=== PATIENT | female | born 1995 | race Caucasian/White ===

== ENCOUNTER 2022-08-17 09:04 | Emergency (ER) | payer BC, SELFPAY ==
--- NOTE | ~2022-08-17 | US_ITS ---
EXAMINATION: US PELVIS COMPLETE US PELVIC OVARIAN DOPPLER US PELVIS AND TRANSVAGINAL CLINICAL INFORMATION: 27-year-old female with history of surgical Ab on day, pain, heavy bleeding. COMPARISON: None TECHNIQUE: Ultrasound of the pelvis is performed using both transabdominal and transvaginal transducers along with Doppler. Transvaginal imaging is performed due to in order to better evaluate the endometrial abnormality. FINDINGS: UTERUS AND CERVIX The anteflexed, anteverted uterus measures 9.8 x 4.5 x 5.8 cm ([id number] x AP x transverse dimension). The myometrial echotexture is normal. No evidence of leiomyoma. The cervix is approximately 3 cm in length. The endometrium is diffusely heterogeneous and thickened, measuring up to 3 cm AP. Color Doppler images show hypervascular appearance of the myometrium; however, there is no focal hypervascularity within the thickened endometrium. Note that retained products of conception within the endometrium often have a hypervascular appearance on color Doppler imaging. ADNEXA: The ovaries have normal size and echotexture. The right ovary is 3.1 x 2.7 x 1.8 cm, volume of 7.7 mL. The left ovary is 2.9 x 2.7 x 2.1 cm, volume of 8.8 mL. The dominant follicle the left ovary is 1.9 cm. No adnexal masses. Color Doppler images with spectral waveforms show presence of normal arterial and venous flow within each ovary. FREE FLUID: No pelvic free fluid. US/US pelvic complete IMPRESSION: The endometrium is diffusely thickened and heterogeneous, measuring up to 3 cm AP. There is absence of increased vascularity within the thickened endometrium, but the absence of color Doppler flow within the thickened endometrium has a low negative predictive value since retained products of conception might occasionally be avascular. The ovaries are normal.
--- NOTE | ~2022-08-17 | US_ITS ---
EXAMINATION: US PELVIS COMPLETE US PELVIC OVARIAN DOPPLER US PELVIS AND TRANSVAGINAL CLINICAL INFORMATION: 27-year-old female with history of surgical Ab on day, pain, heavy bleeding. COMPARISON: None TECHNIQUE: Ultrasound of the pelvis is performed using both transabdominal and transvaginal transducers along with Doppler. Transvaginal imaging is performed due to in order to better evaluate the endometrial abnormality. FINDINGS: UTERUS AND CERVIX The anteflexed, anteverted uterus measures 9.8 x 4.5 x 5.8 cm ([id number] x AP x transverse dimension). The myometrial echotexture is normal. No evidence of leiomyoma. The cervix is approximately 3 cm in length. The endometrium is diffusely heterogeneous and thickened, measuring up to 3 cm AP. Color Doppler images show hypervascular appearance of the myometrium; however, there is no focal hypervascularity within the thickened endometrium. Note that retained products of conception within the endometrium often have a hypervascular appearance on color Doppler imaging. ADNEXA: The ovaries have normal size and echotexture. The right ovary is 3.1 x 2.7 x 1.8 cm, volume of 7.7 mL. The left ovary is 2.9 x 2.7 x 2.1 cm, volume of 8.8 mL. The dominant follicle the left ovary is 1.9 cm. No adnexal masses. Color Doppler images with spectral waveforms show presence of normal arterial and venous flow within each ovary. FREE FLUID: No pelvic free fluid. US/US pelvic and transvaginal IMPRESSION: The endometrium is diffusely thickened and heterogeneous, measuring up to 3 cm AP. There is absence of increased vascularity within the thickened endometrium, but the absence of color Doppler flow within the thickened endometrium has a low negative predictive value since retained products of conception might occasionally be avascular. The ovaries are normal.
--- NOTE | ~2022-08-17 | US_ITS ---
EXAMINATION: US PELVIS COMPLETE US PELVIC OVARIAN DOPPLER US PELVIS AND TRANSVAGINAL CLINICAL INFORMATION: 27-year-old female with history of surgical Ab on day, pain, heavy bleeding. COMPARISON: None TECHNIQUE: Ultrasound of the pelvis is performed using both transabdominal and transvaginal transducers along with Doppler. Transvaginal imaging is performed due to in order to better evaluate the endometrial abnormality. FINDINGS: UTERUS AND CERVIX The anteflexed, anteverted uterus measures 9.8 x 4.5 x 5.8 cm ([id number] x AP x transverse dimension). The myometrial echotexture is normal. No evidence of leiomyoma. The cervix is approximately 3 cm in length. The endometrium is diffusely heterogeneous and thickened, measuring up to 3 cm AP. Color Doppler images show hypervascular appearance of the myometrium; however, there is no focal hypervascularity within the thickened endometrium. Note that retained products of conception within the endometrium often have a hypervascular appearance on color Doppler imaging. ADNEXA: The ovaries have normal size and echotexture. The right ovary is 3.1 x 2.7 x 1.8 cm, volume of 7.7 mL. The left ovary is 2.9 x 2.7 x 2.1 cm, volume of 8.8 mL. The dominant follicle the left ovary is 1.9 cm. No adnexal masses. Color Doppler images with spectral waveforms show presence of normal arterial and venous flow within each ovary. FREE FLUID: No pelvic free fluid. US/US pelvic ovarian doppler IMPRESSION: The endometrium is diffusely thickened and heterogeneous, measuring up to 3 cm AP. There is absence of increased vascularity within the thickened endometrium, but the absence of color Doppler flow within the thickened endometrium has a low negative predictive value since retained products of conception might occasionally be avascular. The ovaries are normal.
[2022-08-17 09:08] VITALS: BP 118/56; PULSE 65; RESP 18; TEMP 36.4; O2SAT 99
[2022-08-17 09:14] VITALS: BP 118/56; PULSE 65; RESP 18; TEMP 36.4; O2SAT 99; BMI 21.1
--- NOTE | 2022-08-17 09:59 | ED.PREGNANCY ---
HPI - General Chief complaint: Abdominal Pain Stated complaint: procedure 4 days ago Experiencing pain Time Seen by Provider: 08/17/22 09:11 Source: patient Mode of arrival: ambulatory Limitations: no limitations History of Present Illness HPI Narrative: 27yoF who is s/p vacuum aspiration/surgical on 08/13/2022 [facility] is presenting to the ER with complaints of worsening vaginal bleeding and suprapubic abdominal pain 2 days after the procedure was performed. She reports that she called the on-call nurse and the nurse explained to her that she should continue taking Motrin and doing abdominal exercises which patient has tried and no symptomatic relief. She reports that she is passing clots although no tissue that she is aware of. She reports that was her 1st she ever had. She reports she is using a pad although she is not soaking a pad and she is just changing the pad any time she sees blood or clots. She reports intermittent episodes of diarrhea. She denies any dizziness, headaches, neck pain/stiffness, trouble swallowing or breathing, chest pain or shortness of breath, dyspnea on exertion, orthopnea, palpitations, paresthesias, nausea/vomiting, back pain, dysuria, hematuria, abnormal vaginal discharge, thoughts of STDs, constipation, rashes, recent travel or sick contacts, lower extremity or calf tenderness or any other symptoms complaints or concerns at this time. MD Complaint: abdominal pain and vaginal bleeding Onset (ago): day(s) (3) Pain Consistency: constant Location: pelvis Severity: mild Quality: Cramping and Aching Relieving factors: none Exacerbating factors: none Associated symptoms: vaginal bleeding and abdominal pain Vaginal discharge: none Vaginal bleeding: heavy and clots Patient : No Related Data : 1 Para: 0 Total number of abortions (spontaneous and elective): 1 Previous Rx's Medication Instructions Recorded acetaminophen 500 mg tablet 1,000 mg PO QID PRN fever or pain 08/17/22 (Tylenol Extra Strength) #14 tabs misoprostol 200 mcg tablet 800 mcg vaginal ONCE #4 tabs 08/17/22 Allergies Allergy/AdvReac Type Severity Reaction Status Date / Time azithromycin Allergy Rash Verified 08/17/22 09:17 Review of Systems Review of Systems: Constitutional : No Fever, No Chills ENT/Mouth : No sore throat, No Rhinorrhea Eyes: No Eye Pain, No Redness Cardiovascular : No Chest Pain, No SOB Respiratory : No Cough, No Sputum, No Wheezing Gastrointestinal : No Nausea, No Vomiting, + Diarrhea, + abdominal pain, Genitourinary : + irregular bleeding, No Dysuria, No Urinary Frequency, No pelvic pain Musculoskeletal : No Myalgias Skin : No rash Neuro : No Weakness, No Headache Psych : No Anxiety/Panic, No Depression Heme/Lymph: No bruising, No Lymphadenopathy Endocrine : No Polyuria, No Polydipsia Yes all other systems are reviewed and are negative [facility] Past Medical History Attestation statement: The following information was validated with the patient. Source: old records reviewed, obtained from family and nursing notes reviewed : 1 Para: 0 Total number of abortions (spontaneous and elective): 1 Social History Social History Advance Directives: No Advance Directives Information Provided: No Patient : No Physical Exam Vital Signs: Vital Signs: Last Vital Signs Temp 97.5 F 08/17/22 09:14 Pulse 65 08/17/22 11:19 Resp 16 08/17/22 11:19 BP 113/66 08/17/22 11:19 Pulse Ox 100 08/17/22 11:19 O2 Del Method 08/17/22 11:19 BMI result Body Mass Index 21.1 vital signs have been reviewed as normal and appeared to be correct. Blood pressure normal. Heart rate normal. Respiration rate normal. Temperature normal. Oxygen saturation normal. Appearance: Alert. Oriented X3. No acute distress. Head: Normal external exam. Normocephalic. Atraumatic. No Faustin signs noted. No raccoon eyes noted Eyes: PERRLA. EOMI. Conjunctiva and sclera normal. Eyelids normal. ENT: Pharynx normal. Uvula midline. Moist mucous membranes. No trismus noted. No drooling noted. No muffled voice noted. Neck: Normal inspection. Neck supple. FROM. No adenopathy. Thyroid Normal. No meningeal signs. No neck mass noted. CVS: Normal heart rate and rhythm. Heart sound normal. No murmurs noted. Pulses normal throughout. Respiratory: No respiratory distress. Painless inspiration. Breath sounds normal. No wheezes/rales/rhonchi noted. Chest nontender. No accessory muscle usage noted or decreased air movement noted. Abdomen: Soft and nontender. Bowel sounds normal in all 4 quadrants. No distention noted. No organomegaly noted. No visible injury noted. : Supervised by VON Schneider. Normal external appearance of urethra. No lesions/lacerations or discharge or tenderness noted. Speculum exam normal appearance/palpation of vagina normal. On speculum exam patient noted to have a thin clear/bloody discharge in the vaginal canal/vault. Otherwise no vaginal erythema. No foreign bodies noted. No vaginal laceration/lesions or active bleeding noted. No tissue present in vagina. No vaginal mass noted. No vaginal swelling noted. No vaginal tenderness noted. Normal appearance of cervix. Normal palpation of cervix. Cervical os is closed. No cervical lesion/mass. No Bartholin cyst noted. No cervical motion tenderness noted. Negative chandelier sign. Normal bimanual exam. Uterine size normal. Bladder normal to palpation. Uterine consistency normal. Normal cervical palpation. Uterine mobility normal. Uterine shape normal. Normal adnexa. Normal rectovaginal exam. Back: No CVA tenderness. Full range of motion noted. Skin: Skin warm and dry. Normal skin color. Normal skin turgor. No rashes/lesions/lacerations noted. Extremities: No lower extremity edema. Extremities exhibit normal range of motion. Extremities nontender. Neuro: Oriented X 3. No motor deficit. No sensory deficit. Reflexes normal. Course Course Course Narrative: 9:50am - 27yoF who is s/p vacuum aspiration/surgical on 08/13/2022 [facility] who is presenting to the ER with complaints of worsening vaginal bleeding and suprapubic abdominal pain 2 days after the procedure was performed. She reports that she called the on-call nurse and the nurse explained to her that she should continue taking Motrin and doing abdominal exercises which patient has tried and no symptomatic relief. She reports that she is passing clots although no tissue that she is aware of. She reports that was her 1st she ever had. She reports she is using a pad although she is not soaking a pad and she is just changing the pad any time she sees blood or clots. She reports intermittent episodes of diarrhea. On exam she is noted to have bright red blood mixed with light clear colored discharge in the vaginal canal. Cervical os is closed not open. No foreign bodies or tissue noted. She is noted to have mild suprapubic abdominal tenderness noted. No CVA tenderness is noted. Plan: Will obtain labs, UA, serum quant, ovarian/pelvic/transvaginal/Doppler ultrasound and re-evaluate. Reevaluation(s) Reevaluation #1: Labs obtained and reviewed - hematocrit 35. - sodium 134. - anion gap 6. - total protein 6.1. - serum quant 2180 - UA revealed moderate amount of blood. No evidence of UTI. Ultrasound revealed thickened endometrium with absence of increased vasculature within the thickened endometrium but absence of color Doppler flow within the thickened endometrium has low negative predective value since retained products of conception might occasionally be avascular. Ovaries are normal. Therefore I discussed this case with Dr. Horan the OBGYN who is on his way to evaluate the patient himself and offer her treatment options. Will re-evaluate. Time: 12:51 Reevaluation #2: Dr. Horan evaluated the patient. She does not have any active bleeding or hemorrhaging at this time. Therefore he offered her 3 different treatments which include D and C which is not emergent due to patient is not actively bleeding and ultrasound is nonspecific. Although patient does not want to going to surgery she would rather wait for 24 hours and if she does not improve she will try to take Misoprostol tomorrow morning at 06:00. And she is instructions to return if she develops any new or worsening symptoms and [facility]. Patient understands agrees with this plan. Time: 13:37 Medications Administered Discontinued Medications Generic Name Dose Route Start Last Admin Trade Name Quinn PRN Reason Stop Dose Admin Acetaminophen 975 mg 08/17/22 11:30 08/17/22 11:36 Acetaminophen 325 Mg Tablet PO 08/17/22 11:31 975 mg ONCE ONE Administration MDM - OB/Uterine Contractions Medical Records Attestation: I reviewed the patient's medical records. Lab Data Attestation: I reviewed the patient's lab results. Result diagrams: 08/17/22 10:17 08/17/22 10:17 Labs: Lab Results 08/17/22 08/17/22 08/17/22 Range/Units 10:17 10:17 10:17 WBC 5.9 (4.8-10.8) X10*3/uL RBC 4.08 L (4.20-5.50) X10*6/uL Hgb 12.5 (12.0-16.0) g/dl Hct 35.0 L (37.0-47.0) % MCV 85.8 (80.0-98.0) fL MCH 30.6 (27.0-33.0) pg MCHC 35.7 H (31.0-35.0) g/dl RDW 11.8 (11.0-16.0) % Plt Count 191 (160-400) X10*3/uL MPV 9.2 L (9.4-12.3) fL Immature Gran % (Auto) 0.3 (0.0-0.4) % Neut % (Auto) 73.1 H (45-73) % Lymph % (Auto) 19.0 L (20-40) % [place] % (Auto) 6.2 (2-11) % Eos % (Auto) 0.9 (0-4) % Baso % (Auto) 0.5 (0-2) % Lymph # (Auto) 1.1 L (1.2-4.9) X10*3/uL [place] # (Auto) 0.4 (0.1-1.2) X10*3/uL Eos # (Auto) 0.1 (0.0-0.4) X10*3/uL Baso # (Auto) 0.0 (0.0-0.2) X10*3/uL Abs Immat Gran (auto) 0.02 (0.00-0.03) X10*3/uL Absolute Neuts (auto) 4.3 (2.0-8.3) x10*3/uL Absolute Nucleated RBC 0.000 (0.0-0.012) X10*3/uL Nucleated RBC % (auto) 0.0 (0.0-0.2) /100WBC PT 13.1 (10.0-13.1) SEC INR 1.1 (0.9-1.1) Sodium 134 L (135-145) mmol/L Potassium 4.0 (3.3-5.1) mmol/L Chloride 106 (96-108) mmol/L Carbon Dioxide 26 (22-29) mmol/L Anion Gap 6 L (12-20) BUN 10 (9-16) mg/dL Creatinine 0.76 (0.5-1.4) mg/dL Estim Creat Clear Calc 112.6 Estimated GFR > 60 Random Glucose 89 (60-115) mg/dL Calcium 9.1 (8.4-10.2) mg/dL Magnesium 2.0 (1.6-2.6) mg/dL Total Bilirubin 0.5 (0.0-1.0) mg/dL AST 16 (5-31) U/L ALT 26 (0-31) U/L Alkaline Phosphatase 50 (39-117) U/L Total Protein 6.1 L (6.5-8.0) g/dL Albumin 4.2 (3.5-5.0) g/dL Beta HCG, Quant 2180 mIU/mL Urine Color Urine Appearance Urine pH (5.0-9.0) Ur Specific [place] (1.005-1.025) Urine Protein (Neg-Trace) mg/dL Urine Glucose (UA) (Negative) mg/dL Urine Ketones (Negative) mg/dL Urine Blood (Negative) Urine Nitrite (Negative) Ur Leukocyte Esterase (Negative) Urine RBC (0-2) /HPF Urine WBC (0-5) /HPF Ur Squamous Epith Cells (0-2) /HPF Urine Bacteria (None Seen) Hyaline Casts (0-2) /LPF 08/17/22 Range/Units 11:21 WBC (4.8-10.8) X10*3/uL RBC (4.20-5.50) X10*6/uL Hgb (12.0-16.0) g/dl Hct (37.0-47.0) % MCV (80.0-98.0) fL MCH (27.0-33.0) pg MCHC (31.0-35.0) g/dl RDW (11.0-16.0) % Plt Count (160-400) X10*3/uL MPV (9.4-12.3) fL Immature Gran % (Auto) (0.0-0.4) % Neut % (Auto) (45-73) % Lymph % (Auto) (20-40) % [place] % (Auto) (2-11) % Eos % (Auto) (0-4) % Baso % (Auto) (0-2) % Lymph # (Auto) (1.2-4.9) X10*3/uL [place] # (Auto) (0.1-1.2) X10*3/uL Eos # (Auto) (0.0-0.4) X10*3/uL Baso # (Auto) (0.0-0.2) X10*3/uL Abs Immat Gran (auto) (0.00-0.03) X10*3/uL Absolute Neuts (auto) (2.0-8.3) x10*3/uL Absolute Nucleated RBC (0.0-0.012) X10*3/uL Nucleated RBC % (auto) (0.0-0.2) /100WBC PT (10.0-13.1) SEC INR (0.9-1.1) Sodium (135-145) mmol/L Potassium (3.3-5.1) mmol/L Chloride (96-108) mmol/L Carbon Dioxide (22-29) mmol/L Anion Gap (12-20) BUN (9-16) mg/dL Creatinine (0.5-1.4) mg/dL Estim Creat Clear Calc Estimated GFR Random Glucose (60-115) mg/dL Calcium (8.4-10.2) mg/dL Magnesium (1.6-2.6) mg/dL Total Bilirubin (0.0-1.0) mg/dL AST (5-31) U/L ALT (0-31) U/L Alkaline Phosphatase (39-117) U/L Total Protein (6.5-8.0) g/dL Albumin (3.5-5.0) g/dL Beta HCG, Quant mIU/mL Urine Color Yellow Urine Appearance Clear Urine pH 6.5 (5.0-9.0) Ur Specific [place] <= 1.005 (1.005-1.025) Urine Protein Negative (Neg-Trace) mg/dL Urine Glucose (UA) Negative (Negative) mg/dL Urine Ketones Negative (Negative) mg/dL Urine Blood Moderate (2+) H (Negative) Urine Nitrite Negative (Negative) Ur Leukocyte Esterase Negative (Negative) Urine RBC 0-2 (0-2) /HPF Urine WBC 0-5 (0-5) /HPF Ur Squamous Epith Cells 0-2 (0-2) /HPF Urine Bacteria None Seen (None Seen) Hyaline Casts 0-2 (0-2) /LPF Imaging Data Pelvic ultrasound: Attestation: I personally reviewed and interpreted this imaging study as follows: Radiologist's impression: FINDINGS: UTERUS AND CERVIX The anteflexed, anteverted uterus measures 9.8 x 4.5 x 5.8 cm ([id number] x AP x transverse dimension). The myometrial echotexture is normal. No evidence of leiomyoma. The cervix is approximately 3 cm in length. The endometrium is diffusely heterogeneous and thickened, measuring up to 3 cm AP. Color Doppler images show hypervascular appearance of the myometrium; however, there is no focal hypervascularity within the thickened endometrium. Note that retained products of conception within the endometrium often have a hypervascular appearance on color Doppler imaging. ADNEXA: The ovaries have normal size and echotexture. The right ovary is 3.1 x 2.7 x 1.8 cm, volume of 7.7 mL. The left ovary is 2.9 x 2.7 x 2.1 cm, volume of 8.8 mL. The dominant follicle the left ovary is 1.9 cm. No adnexal masses. Color Doppler images with spectral waveforms show presence of normal arterial and venous flow within each ovary. FREE FLUID: No pelvic free fluid. US/US pelvic complete IMPRESSION: The endometrium is diffusely thickened and heterogeneous, measuring up to 3 cm AP. There is absence of increased vascularity within the thickened endometrium, but the absence of color Doppler flow within the thickened endometrium has a low negative predictive value since retained products of conception might occasionally be avascular. ? The ovaries are normal. Critical Care Time Critical Care Time Critical Care Time: Yes Total Critical Care Time: 60 Attestation: I personally attest to this time spent taking care of the patient Discharge Plan Discharge Clinical Impression: Abnormal vaginal bleeding Patient Disposition: Home, Self-Care Instructions: Menorrhagia (ED) Prescriptions: New acetaminophen [Tylenol Extra Strength] 500 mg tablet 1,000 mg PO QID PRN (Reason: fever or pain) Qty: 14 0RF misoprostol 200 mcg tablet 800 mcg vaginal ONCE Qty: 4 0RF Referrals: Garry Horan MD [Physician] - (Call to make a follow-up appointment if you [facility]) Stand Alone Forms: Work/School Release
[2022-08-17 10:22] LABS: MANUAL DIFF FLAG NO
[2022-08-17 10:24] LABS: Basophils Percent Auto 0.5 % (0-2); Eosinophils Absolute Auto 0.1 X10*3/uL (0.0-0.4); Eosinophils Percent Auto 0.9 % (0-4); Hemoglobin 12.5 g/dl (12.0-16.0); Imm Gran Abs Auto 0.02 X10*3/uL (0.00-0.03); Imm Gran Pct Auto 0.3 % (0.0-0.4); Lymphocytes Absolute Auto 1.1 X10*3/uL (1.2-4.9); Mean Corpuscular HGB Conc 35.7 g/dl (31.0-35.0); Mean Corpuscular Hemoglobin 30.6 pg (27.0-33.0); Mean Corpuscular Volume 85.8 fL (80.0-98.0); Mean Platelet Volume 9.2 fL (9.4-12.3); Monocytes Absolute Auto 0.4 X10*3/uL (0.1-1.2); Monocytes Percent Auto 6.2 % (2-11); Neutrophils Absolute Auto 4.3 x10*3/uL (2.0-8.3); Neutrophils Percent Auto 73.1 % (45-73); Platelet Count 191 X10*3/uL (160-400); Red Blood Count 4.08 X10*6/uL (4.20-5.50); Red Cell Distribution Width 11.8 % (11.0-16.0); White Blood Count 5.9 X10*3/uL (4.8-10.8)
[2022-08-17 10:34] LABS: INTERNATIONAL NORM RATIO 1.1 (0.9-1.1); Prothrombin Time 13.1 SEC (10.0-13.1)
[2022-08-17 11:12] LABS: Alanine Aminotransferase 26 U/L (0-31); Albumin Level 4.2 g/dL (3.5-5.0); Alkaline Phosphatase 50 U/L (39-117); Anion Gap 6 (12-20); Aspartate Amino Transferase 16 U/L (5-31); Bilirubin Total 0.5 mg/dL (0.0-1.0); Blood Urea Nitrogen 10 mg/dL (9-16); Calcium 9.1 mg/dL (8.4-10.2); Carbon Dioxide 26 mmol/L (22-29); Chloride 106 mmol/L (96-108); Creatinine Clr Calc Pharmacy 112.6; Estimated Glomerular Filt Rate > 60; Glucose Random 89 mg/dL (60-115); HCG Quantitative 2180 mIU/mL; Sodium 134 mmol/L (135-145); Total Protein 6.1 g/dL (6.5-8.0)
[2022-08-17 11:19] VITALS: BP 113/66; PULSE 65; RESP 16; O2SAT 100
--- NOTE | 2022-08-17 11:21 | PC.NURSE ---
pt a&ox3, vss, pt reporting increasing pelvic pain - currently 04/23, urine sample obtained. pt pending u/s results.
[2022-08-17 11:34] LABS: Appearance Urine Clear; Color Urine Yellow; Glucose Urine UA Negative (Negative); Leukocyte Esterase Urine Negative (Negative); Nitrite Urine Negative (Negative); PH 6.5 (5.0-9.0); Specific Gravity - Urine <= 1.005 (1.005-1.025); UMIC TRIGGER UACC YES; Urine Blood Moderate (2+) (Negative); Urine Ketones Negative (Negative); Urine Protein Negative (Neg-Trace)
[2022-08-17] MEDS: Acetaminophen 325 MG TABLET 975 MG PO (11:36)
--- NOTE | 2022-08-17 11:39 | PC.NURSE ---
pt medicated per provider order.
[2022-08-17 12:24] LABS: Bacteria Urine None Seen (None Seen); Hyaline Casts Urine 0-2 /LPF (0-2); RBC Urine 0-2 /HPF (0-2); Squamous Epithelial Cell Urine 0-2 /HPF (0-2); WBC Urine 0-5 /HPF (0-5)
--- NOTE | 2022-08-17 13:52 | P.CONOB_ITS ---
[employer] [facility] - CN: HPI Data of Consult Consult date: 08/17/22 Primary Care Provider: Unknown Physician Consult Narrative Narrative: I was consulted on Leni Gan who is a 27 year old female presenting with pelvic cramping and mild vaginal bleeding of 3 days duration. The patient had suction D&C for termination of on 08/13 at 6-7 weeks of gestation confirmed by [facility] Post[facility] day #1, the patient did well, vaginal bleeding and pelvic cramping st arted on postop day# which persisted till today, no associated fever or chills and no heavy vaginal bleeding. This morning, the patient changed a pad once, took ibuprofen and came to the emergency room where she was given a Tylenol dose. During her stay in the emergency room, her pelvic cramping has improved markedly and vaginal bleeding was minimal. In the emergency room, the following workup was done CBC showed no evidence of leukocytosis, H&H was 12.5/35, hCG was 2180, and pelvic ultrasound was done cc:: CC: OB [facility] Social History Social History Advance Directives: No Advance Directives Information Provided: No Patient : No Meds Allergies Allergy/AdvReac Type Severity Reaction Status Date / Time azithromycin Allergy Rash Verified 08/17/22 09:17 [facility] [facility] Physical Exam Vitals Vital signs: Temp Pulse Resp BP Pulse Ox O2 Del Method 97.5 F 65 16 113/66 100 08/17/22 09:14 08/17/22 11:19 08/17/22 11:19 08/17/22 11:19 08/17/22 11:19 08/17/22 11:19 BMI result Body Mass Index 21.1 Abdomen Auscultation/Inspection/Palpation: Soft, Non-distended and No tenderness Female Genitalia (Pelvic) Bladder/Urethra: Normal meatus Vulva: No lesions Vagina: Nontender and No erythema Cervix: No cervical motion tenderness Uterus: Normal size and Nontender Adnexa/Parametria: Adnexal Tenderness: None, Adnexal Mass: None, Parametrial Tenderness: None and Parametrial Mass: None Additional Comments: Minimal blood per vagina, No evidence of active vaginal bleeding [employer] [facility] - Results Labs CBC & Chem 7: 08/17/22 10:17 08/17/22 10:17 Labs: Short CBC 08/17/22 Range/Units 10:17 WBC 5.9 (4.8-10.8) X10*3/uL Hgb 12.5 (12.0-16.0) g/dl Hct 35.0 L (37.0-47.0) % Plt Count 191 (160-400) X10*3/uL BMP 08/17/22 10:17 Sodium 134 L Potassium 4.0 Chloride 106 Carbon Dioxide 26 BUN 10 Creatinine 0.76 Calcium 9.1 Liver Function 08/17/22 Range/Units 10:17 Total Bilirubin 0.5 (0.0-1.0) mg/dL AST 16 (5-31) U/L ALT 26 (0-31) U/L Alkaline Phosphatase 50 (39-117) U/L Albumin 4.2 (3.5-5.0) g/dL Urine 08/17/22 Range/Units 11:21 Urine Color Yellow Urine Appearance Clear Urine pH 6.5 (5.0-9.0) Ur Specific [place] <= 1.005 (1.005-1.025) Urine Protein Negative (Neg-Trace) mg/dL Urine Glucose (UA) Negative (Negative) mg/dL Imaging US - abdomen: Radiologist's impression: ITS Impressions Doppler Study Ultrasound 08/17/22 10:49 IMPRESSION: The endometrium is diffusely thickened and heterogeneous, measuring up to 3 cm AP. There is absence of increased vascularity within the thickened endometrium, but the absence of color Doppler flow within the thickened endometrium has a low negative predictive value since retained products of conception might occasionally be avascular. The ovaries are normal. Pelvic/Transvag US 08/17/22 10:49 IMPRESSION: The endometrium is diffusely thickened and heterogeneous, measuring up to 3 cm AP. There is absence of increased vascularity within the thickened endometrium, but the absence of color Doppler flow within the thickened endometrium has a low negative predictive value since retained products of conception might occasionally be avascular. The ovaries are normal. Pelvis Ultrasound 08/17/22 10:49 IMPRESSION: The endometrium is diffusely thickened and heterogeneous, measuring up to 3 cm AP. There is absence of increased vascularity within the thickened endometrium, but the absence of color Doppler flow within the thickened endometrium has a low negative predictive value since retained products of conception might occasionally be avascular. The ovaries are normal. Assessment and Plan (1) Abnormal vaginal bleeding: Status: Acute Plan GC and chlamydia taken. Discussed with the patient the results of her evaluation including CBC within normal, hCG results and pelvic ultrasound; in addition the findings on her normal abdominal and pelvic exam with no evidence of tenderness or active bleeding. The differential diagnosis discussed with the patient include but not limited to: normal postoperative course, retained product of conception or others. Discussed with the patient options of treatment including expectant management, suction D&C or misoprostol for the treatment of possible retained product for conception. All pros and cons, risks benefits of each approach were discussed with the patient, the patient decided to proceed with expectant management for the 1st 12-24 hours, if her symptoms do not improve, she would like to try a dos e of 800 mcg of misoprostol vaginally by tomorrow morning and if her symptoms to not improve within few hours, she would like to proceed with suction D&C then. Misoprostol 800 mcg vaginally will be prescribed by RICKY Gonzalez in the emergency room to the patient's pharmacy. A more detailed discussion about the mechanism of action of misoprostol and possible side effects were discussed with the patient and instructions were given to the patient to insert 4 tablets, 200 mcg each vaginally, and expect results within 4 hours. Typical symptoms and the experience of passing possible retained tissue were reviewed with the patient. Concerning symptoms to call for include but are not limited to: severe abdominal pain that persists after the tissues has passed or if pain persists and no bleeding or tissue has passed. Patients should also call if bleeding does not decrease after tissue is passed or if they are soaking two maxi pads per hour for two consecutive hours. Explained to the patient that after taking Misoprostol, the patient is likely to work within the next several hours. Instructions given the patient to come back to the emergency room in case of fever above 100.4, heavy vaginal bleeding or persistence of her pelvic cramping and [facility] or come back to the emergency room. All questions answered, the patient verbalized understanding
[2022-08-18 04:15] LABS: CT PCR NOT DETECTED (Not Detect.); NG PCR NOT DETECTED (Not Detect.)
== END 2022-08-17 13:46 | disposition home or self-care (01) ==
PROVIDERS: Physician Assistant Medical; Emergency Provider Emergency Medicine
DX: O20.9 Hemorrhage in early pregnancy, unspecified (principal); R10.2 Pelvic and perineal pain; Z3A.01 Less than 8 weeks gestation of pregnancy; Z79.899 Other long term (current) drug therapy
CPT/HCPCS: 36415; 76830; 76856; 80053; 81001; 83735; 84702; 85025; 85610; 87491; 87591; 93975; 99284

== ENCOUNTER 2023-02-04 15:21 | Emergency (ER) | payer BC, SELFPAY ==
--- NOTE | 2023-02-04 15:43 | ED.ANIMALBIT ---
HPI - Animal Bite General Chief Complaint: Animal Bite Stated Complaint: bit by unknown dog, needs rabies vac Time Seen by Provider: 02/04/23 17:05 Source: patient Mode of arrival: ambulatory Limitations: no limitations History of Present Illness HPI narrative: her Tdap is UTD complaint: animal bite Onset (ago): hour(s) (around lunchtime) Animal: dog Description of animal: household pet, immunizations unknown and appeared well Mechanism: bite Location: other (R hip) Pain description: dull Context: unprovoked Associated symptoms: other (puncture wound) Treatments prior to arrival: wound dressing(s) and irrigation Related Data Previous Rx's Medication Instructions Recorded acetaminophen 500 mg tablet 1,000 mg PO QID PRN fever or pain 08/17/22 (Tylenol Extra Strength) #14 tabs misoprostol 200 mcg tablet 800 mcg vaginal ONCE #4 tabs 08/17/22 amoxicillin 875 mg-potassium 1 tab PO BID #6 tabs 02/04/23 clavulanate 125 mg tablet fluconazole 150 mg tablet 150 mg PO Q3D 2 doses #2 tabs 02/04/23 (Diflucan) Allergies Allergy/AdvReac Type Severity Reaction Status Date / Time azithromycin Allergy Rash Verified 02/04/23 15:44 Review of Systems Review of Systems: Constitutional : No Fever, No Chills, Cardiovascular : No Chest Pain, No SOB Respiratory : No Dyspnea Gastrointestinal : No abdominal pain Musculoskeletal : No Joint Swelling Skin : No rash, positive skin puncture Neuro : No Weakness, No Numbness PMFSH Past Medical History Attestation statement: The following information was validated with the patient. Medical History No pertinent past medical history Social History Social History (Updated 02/04/23 @ 17:27 by Socorro Shin DO) Patient Tobacco Use Status: Never used Tobacco Physical Exam ED Vital Signs: Vital Signs - 24 hr 02/04/23 15:44 Temperature 97 F Pulse Rate 92 Respiratory Rate 18 Blood Pressure 126/84 Pulse Oximetry 100 Oxygen Delivery Method Room Air BMI result Body Mass Index 22.0 Appearance: Alert. Oriented X3. No acute distress. Eyes: Pupils equal, round and reactive to light. ENT: Pharynx normal. Neck: Normal inspection. Neck supple. CVS: Pulses normal. Respiratory: No respiratory distress. Abdomen: Soft and nontender. Skin: Skin warm and dry. R hip near iliac crest is puncture wound superficial no bleeding single Extremities: No lower extremity edema. Neuro: Oriented X 3. No motor deficit. No sensory deficit. Course Course Course Narrative: RME: 27yo F w/no sig PMHx c/o dog bite to R hip from unknown dog on Thursday while walking on lunch break. Admits received TDap yesterday. Unknown if dog is vaccinated +small puncture wound/abrasion to R hip Rabies vaccine & immune globulin ordered Full HPI, ROS and PE to be performed by primary ED provider. Medical Decision Making Medical Decision Making MDM Narrative: 27 yo female otherwise healthy here with c/o R hip puncture wound from unknown dog. She is UTD on tetanus she will need rabies vaccine and immunoglobulin. Given it is near her hip I have ordered prophylactic augmentin Differential Diagnosis Differential Diagnoses: The differential diagnosis associated with the presentation includes dog bite, rabies exposure Prescription Management I considered prescription management with: Antibiotic (given right near hip joint 3 days of prophylactic augmentin) Discharge Plan Discharge Clinical Impression: Dog bite Patient Disposition: Home, Self-Care Instructions: Animal Bite (ED), Rabies (ED) Additional Instructions: return for worsening redness, swelling, yellow drainage or fevers. you will need to come back for your other rabies shots. we will give you a hand out for the specific dates on day 3, 7 and 14. take an probiotic while on the prophylactic antibiotics. seek help if you are having severe abdominal cramps, bloody stools or more than 6 to 8 loose stools a day. Prescriptions: New amoxicillin-pot clavulanate 875-125 mg tablet 1 tab PO BID Qty: 6 0RF fluconazole [Diflucan] 150 mg tablet 150 mg PO Q3D 0 Days Qty: 2 0RF Rx Instructions: may repeat second dose 72 hrs after first dose if symptoms persist No Action acetaminophen [Tylenol Extra Strength] 500 mg tablet 1,000 mg PO QID PRN (Reason: fever or pain) Qty: 14 0RF misoprostol 200 mcg tablet 800 mcg vaginal ONCE Qty: 4 0RF
[2023-02-04 15:44] VITALS: BP 126/84; PULSE 92; RESP 18; TEMP 36.1; O2SAT 100; BMI 22.0
[2023-02-04] MEDS: Rabies Vaccine, Human Diploid (Imovax) 1 ML VIAL IM (17:45)
[2023-02-04] MEDS: Rabies Immune Globulin/PF 300 UNIT/ML VIAL 1315.42 UNIT IM (17:46)
== END 2023-02-04 18:29 | disposition home or self-care (01) ==
PROVIDERS: Emergency Provider Emergency Medicine
DX: S71.051A Open bite, right hip, initial encounter (principal); S71.031A Puncture wound without foreign body, right hip, initial encounter; S70.211A Abrasion, right hip, initial encounter; W54.0XXA Bitten by dog, initial encounter; Y93.K1 Activity, walking an animal; Y92.9 Unspecified place or not applicable; Y99.9 Unspecified external cause status; Z20.3 Contact with and (suspected) exposure to rabies; Z29.14 Encounter for prophylactic rabies immune globulin; Z79.899 Other long term (current) drug therapy; Z23 Encounter for immunization
CPT/HCPCS: 90375; 90471; 90675; 96372; 99282; 99284

== ENCOUNTER 2023-02-07 09:25 | Outpatient (REF) | payer BC, SELFPAY | END 2023-02-07 09:26 | disposition home or self-care (01) | LOC: HO.MDS 09:25 | PROVIDERS: Visit Provider Physician Assistant | DX: S71.051D Open bite, right hip, subsequent encounter (principal); W54.0XXD Bitten by dog, subsequent encounter; Z20.3 Contact with and (suspected) exposure to rabies | CPT/HCPCS: 90471; 90675 ==

== ENCOUNTER 2023-02-11 14:48 | Outpatient (REF) | payer BC, SELFPAY | END 2023-02-11 14:49 | disposition home or self-care (01) | LOC: HO.MDS 14:48 | PROVIDERS: Visit Provider Physician Assistant | DX: T14.8XXD Other injury of unspecified body region, subsequent encounter (principal); W54.0XXD Bitten by dog, subsequent encounter; Z20.3 Contact with and (suspected) exposure to rabies | CPT/HCPCS: 90471; 90675 ==

== ENCOUNTER 2023-02-18 14:55 | Outpatient (REF) | payer BC, SELFPAY | END 2023-02-18 14:56 | disposition home or self-care (01) | LOC: HO.MDS 14:55 | PROVIDERS: Visit Provider Physician Assistant | DX: T14.8XXA Other injury of unspecified body region, initial encounter (principal); W54.0XXA Bitten by dog, initial encounter; Z20.3 Contact with and (suspected) exposure to rabies | CPT/HCPCS: 90471; 90675 ==